=== PATIENT | female | born 1980 | race Caucasian/White ===

== ENCOUNTER 2022-02-07 11:50 | Outpatient (CLI) | payer BC, MEDICAID, SELFPAY ==
--- NOTE | 2022-02-07 12:05 | XR_ITS ---
WS: [id number] PELVIS: AP VIEW SUBMITTED HISTORY: PELVIC PAIN COMPARISON: None available. Bones and soft tissues of the pelvis are intact. No fracture or dislocation. XR/XR pelvis 1-2V* [id number] IMPRESSION: Negative pelvis.
--- NOTE | 2022-02-07 12:05 | XR_ITS ---
WS: [id number] LUMBAR SPINE: 3 VIEWS TECHNIQUE: AP, lateral and L5-S1 spot. HISTORY: R LUMBAR RADICULOPATHY COMPARISON: None available. Very mild RIGHT curvature lumbar spine and mild straightening. No fractures or disc space narrowing. No loss of disc space or vertebral body height. SI joints are symmetric bilaterally. No soft tissue abnormalities. XR/XR lumbar spine 2-3V* [id number] IMPRESSION: Mild RIGHT curvature lumbar spine. No significant disc space narrowing.
== END 2022-02-07 11:51 | disposition home or self-care (01) ==
PROVIDERS: PCP Family Medicine; Visit Provider Family Medicine
DX: R10.2 Pelvic and perineal pain (principal); M54.16 Radiculopathy, lumbar region
CPT/HCPCS: 72100; 72170